=== PATIENT | female | born 1945 | race Caucasian/White ===

== ENCOUNTER 2017-12-14 05:50 | Day surgery (SDC) | payer MEDICARE, OTHER ==
[2017-12-14] MEDS ORDERED: DIPRIVAN 200 MG/20 ML IV ONE (05:51)
[2017-12-14] MEDS ORDERED: Ketamine HCl 50 MG/ML IJ ONE (05:51)
[2017-12-14] MEDS ORDERED: Lactated Ringers 1,000 ML IV SCH (06:00)
--- NOTE | 2017-12-14 10:36 | OP ---
SURGERY DATE/TIME: 12/14/2017 0727 PREOPERATIVE DIAGNOSIS: Screening exam. POSTOPERATIVE DIAGNOSIS: Sigmoid diverticulosis moderate to severe otherwise normal colon. PROCEDURE: Colonoscopy. SURGEON: Dr. Mckeon. ANESTHESIA: MAC. Medications given by anesthesia department. HISTORY: The patient is a 72 year-old white female presenting now for screening colonoscopy. The patient was appraised of the risks of the procedure including the risk of perforation, phlebitis, untoward reaction to medication, bleeding and missed lesions. The patient verbalized her understanding and desired to have the procedure performed. DESCRIPTION OF PROCEDURE: The patient was given the medications by the anesthesia department. She had continuous pulse oximetry, ECG monitoring, intermittent blood pressure monitoring and tidal CO2 monitoring during the examination. She was placed in the left lateral decubitus position. A digital rectal examination was performed and revealed normal anal sphincter tone and no masses. The flexible Olympus pediatric colonoscope was used to intubate the rectum. A view of the colon was developed sequentially to the cecum. Upon insertion and withdrawal was noted moderate to severe sigmoid diverticula but no other mucosal lesions were encountered. The scope was removed from the patient who tolerated the procedure well and was sent back to OP recovery in good condition. The prep was noted to be fair to good.
[2017-12-14 10:46] VITALS: O2SAT 98
[2017-12-14 11:32] VITALS: BP 127/72; PULSE 64
== END 2017-12-14 09:10 | disposition home or self-care (01) ==
LOC: SDC 05:50
PROVIDERS: ATTEND Family Medicine
PROC: 0DJD8ZZ Inspection of Lower Intestinal Tract, Via Natural or Artificial Opening Endoscopic (ICD-10-PCS; principal; 2017-12-14)
DX: Z12.11 Encounter for screening for malignant neoplasm of colon (principal); K57.30 Diverticulosis of large intestine without perforation or abscess without bleeding
CPT/HCPCS: 99100; J2704

== ENCOUNTER 2019-12-13 09:14 | Emergency (ER) | payer MEDICARE, OTHER ==
--- NOTE | 2019-12-13 09:45 | ERPHSYRPT ---
- History of Present Illness Time Seen by Provider: 12/13/19 09:28 Source: patient Exam Limitations: no limitations Physician History: Patient is a 74-year-old female with a past medical history significant for a prior stroke for which she is currently on Xarelto, hypertension, hyperlipidemia who presents with a chief complaint of a cough and sinus congestion. Onset reportedly was this past Thursday. She endorsed having a dry cough in addition to a subjective fever, sore throat, sinus congestion, headache in addition to one episode of posttussis vomiting. Of note, her tried to schedule an appointment with her primary care provider, Dr. Mckeon, and was told to come to the emergency department for further evaluation because they were concerned the patient may be at risk for dehydration. The patient has not had no additional episodes of vomiting, diarrhea, chest pain , shortness of breath or abdominal pain. Take anything for her symptoms this morning. She has no known history of lung disease. She is he has no known COVID-19 exposures, travel to any known areas that are endemic with COVID at this time. Allergies/Adverse Reactions: latex Allergy (Intermediate, Verified 12/07/17 15:25) Home Medications: L. Acidophilus/Dig Enz Cmb 5 [Probiotic-Digestive Enzymes] 1 each PO DAILY 03/11 [History] Ascorbic Acid 500 mg [Vitamin C 500 MG] 500 mg PO DAILY 12/07/17 [History] Enzymes,Digestive [Digestive Enzymes] 1 each PO DAILY 12/07/17 [History] Metoprolol Succinate 25 mg Xl* [Toprol-Xl 25MG Tablets] 25 mg PO DAILY [History] Rivaroxaban [Xarelto] 20 mg PO DAILY 12/07/17 [History] Ubidecarenone [Co Q-10] 200 mg PO DAILY 12/07/17 [History] Hx Tetanus, Diphtheria Vaccination/Date Given: No Hx Influenza Vaccination/Date Given: No Hx Pneumococcal Vaccination/Date Given: No - Review of Systems Constitutional: Fever, Chills Eyes: Eye Pain Ears, Nose, & Throat: Ear Pain, Nose Congestion, Throat Pain, Painful Swallowing Respiratory: Cough, No Dyspnea, No Dyspnea on Exertion (HOUGH), No Stridor, No Wheezing Cardiac: No Chest Pain Abdominal/Gastrointestinal: No Abdominal Pain, No Nausea, No Vomiting Genitourinary Symptoms: No Symptoms Musculoskeletal: No Symptoms Skin: No Symptoms Neurological: No Symptoms Psychological: No Symptoms Endocrine: No Symptoms All Other Systems: Reviewed and Negative - Past Medical History Pertinent Past Medical History: Yes Neurological History: TIA ENT History: No Pertinent History Cardiac History: Arrhythmia, Hypertension, Other Respiratory History: No Pertinent History Endocrine Medical History: No Pertinent History Musculoskeletal History: No Pertinent History GI Medical History: No Pertinent History History: No Pertinent History Psycho-Social History: No Pertinent History Female Reproductive Disorders: No Pertinent History Other Medical History: afib,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 colonoscopy - Social History Smoking Status: Never smoker Exposure to second hand smoke: No Drug Use: none Patient Lives Alone: No - Nursing Vital Signs Nursing Vital Signs: Initial Vital Signs Temperature 99.1 F 12/13/19 09:22 Pulse Rate 85 12/13/19 09:22 Respiratory Rate 22 12/13/19 09:22 Blood Pressure 134/82 12/13/19 09:22 O2 Sat by Pulse Oximetry 96 12/13/19 09:22 Pain Scale Pain Intensity 0 - Physical Exam General Appearance: no apparent distress, alert Eye Exam: PERRL/EOMI, No photophobia, No EOM palsy/anisocoria Ears, Nose, Throat Exam: normal ENT inspection, TMs normal, moist mucous membranes, No pharynx normal, No TM abnormal (L), No pharyngeal erythema, No tonsillar exudate Neck Exam: non-tender, supple Respiratory Exam: normal breath sounds, lungs clear, airway intact, No chest tenderness, No respiratory distress, No diminished breath sounds, No accessory muscle use Cardiovascular Exam: regular rate/rhythm, normal heart sounds, capillary refill <2 sec, No murmur, No friction rub, No gallop, No tachycardia Gastrointestinal/Abdomen Exam: soft, No tenderness, No distention, No mass Pelvic Exam: not done Rectal Exam: No deferred Back Exam: normal inspection Extremity Exam: normal inspection Neurologic Exam: alert, oriented x 3, cooperative, normal mood/affect Skin Exam: normal color, warm, dry SpO2 Interpretation: normal O2 Delivery: Room Air - Course Nursing assessment & vital signs reviewed: Yes - Radiology Exams Chest X-ray Interpretation: Reviewed by me, Negative Ordered Tests: Active Orders 24 hr Category Date Time Status CHEST 2 VIEWS (PA AND LAT) Stat Exams 12/13/19 09:46 Completed Medication Summary Discontinued Medications Generic Name Dose Route Start Last Admin Trade Name Helga PRN Reason Stop Dose Admin Acetaminophen 975 mg 12/13/19 09:47 12/13/19 10:25 Tylenol 325 Mg PO 12/13/19 09:48 975 mg STAT ONE Administration Acetaminophen Confirm 12/13/19 10:23 Tylenol 325 Mg Administered 12/13/19 10:24 Dose 975 mg .ROUTE .STK-MED ONE Ondansetron HCl 4 mg 12/13/19 09:47 12/13/19 10:24 Zofran Odt 4 Mg PO 12/13/19 09:48 4 mg STAT ONE Administration Ondansetron HCl Confirm 12/13/19 10:23 Zofran Odt 4 Mg Administered 12/13/19 10:24 Dose 4 mg .ROUTE .STK-MED ONE Lab/Rad Data: Laboratory Results 12/13/19 Range/Units 10:08 Influenza Type A Ag POSITIVE (NEGATIVE) Influenza Type B Ag NEGATIVE (NEGATIVE) RSV (PCR) NEGATIVE (Negative) - Progress Progress: improved Progress Note: 12/13/19 10:45 Lab called informing that the patient has tested positive for influenza A. 12/13/19 21:15 Nontoxic in appearance. Afebrile and the patient appears to be well-hydrated. X-ray was ordered to eval for evidence of pneumonia and flu testing was positive for influenza A. There is no obvious pneumonia or pleural effusion on her chest x-ray. Overall, she appears to be well with no signs of meningismus. Ultimately, she was discharged home with a prescription for Tamiflu and instructed to take ondansetron as needed for any vomiting and to use Tylenol as well as ibuprofen as needed for any fevers or pain. ED return precautions for influenza was given, specifically signs and symptoms to monitor for a secondary pneumonia. Otherwise, she was instructed to follow-up with her primary care provider if needed. She agreed with and verbally understood the discharge plan and was comfortable with being discharged home. Discussed with : Jaret Counseled pt/family regarding: lab results, diagnosis, need for follow-up, rad results - Departure Departure Disposition: Home Clinical Impression: Influenza A Condition: Stable Critical Care Time: No Referrals: DIANNA MCKEON [Primary Care Provider] - Instructions: Flu, Adult (DC) Additional Instructions: Please take-/Tylenol and/or ibuprofen as needed for any fevers or generalized aches and pains. You can purchase these medications [id number]. Please take these medications as instructed on the medication bottle. Prescriptions: Ondansetron ODT 4 MG [Zofran Odt 4 mg] 4 mg PO Q6H PRN PRN #10 tab.rapdis PRN Reason: Vomiting Benzonatate [Tessalon Perle] 100 mg PO [id number] PRN #30 capsule PRN Reason: Cough Oseltamivir 75 mg [Tamiflu 75MG Capsule] 75 mg PO BID #10 cap
[2019-12-13] MEDS ORDERED: TYLENOL 325 MG PO ONE (09:47)
[2019-12-13] MEDS ORDERED: ZOFRAN ODT 4 MG PO ONE (09:47)
[2019-12-13] MEDS ORDERED: ZOFRAN ODT 4 MG ONE (10:23)
[2019-12-13] MEDS ORDERED: TYLENOL 325 MG ONE (10:23)
--- NOTE | 2019-12-13 10:37 | XRAY ---
Indication: Fever, cough, and headache. Comparison: None PA/lateral chest demonstrates normal heart and lungs. Bony thorax intact with minimal degenerative changes. Incidental anterior chest electronic device.
[2019-12-13 10:38] LABS: INFLUENZA B NEGATIVE (NEGATIVE); RESPIRATORY SYNCTIAL VIRUS NEGATIVE (Negative)
[2019-12-13 10:44] LABS: INFLUENZA A POSITIVE (NEGATIVE)
[2019-12-13 10:52] VITALS: BP 130/80; PULSE 88; O2SAT 98
== END 2019-12-13 11:03 | disposition home or self-care (01) ==
LOC: ED 09:14
DX: J09.X2 Influenza due to identified novel influenza A virus with other respiratory manifestations (principal)
CPT/HCPCS: 71046; 87631; 99284; Q0162; A9270-GY

== ENCOUNTER 2023-11-13 01:10 | Observation (INO) | payer MEDICARE ==
--- NOTE | 2023-11-13 01:24 | ERPHSYRPT ---
- History of Present Illness Time Seen by Provider: 11/13/23 01:14 Historian: patient, family Exam Limitations: no limitations Physician History: 78 years old female with history of atrial fibrillation on Xarelto presented to the ER with chief complaint of right-sided chest pain sudden onset waking her up from sleep almost an hour prior to arrival. Patient reports dull aching to sharp pain 7/10 intensity earlier, took 3 nitros 5 minutes apart and pain is better and currently rates 3/10 intensity. Patient denies any palpitations or difficulty breathing. No cough fever or chills reported. Denies any known sick contact. No history of coronary artery disease or recent cardiac workup done. Prior Chest Pain/Cardiac Workup: no prior chest pain Nitro Today/Relief: 0.4 mg x 3 Aspirin Treatment Today: no aspirin today Allergies/Adverse Reactions: latex Allergy (Intermediate, Verified 11/13/23 01:47) Rash Home Medications: Metoprolol Succinate 25 mg Xl* [Toprol-Xl 25MG Tablets] 25 mg PO LUNCH 12/07/17 [History] Rivaroxaban [Xarelto] 20 mg PO HS 12/07/17 [History] Atorvastatin Calcium 20 mg PO HS 11/13/23 [History] Simethicone [Gas-X Ultra Strength] 180 mg PO BID 11/13/23 [History] Vit B6/Me-Thfolate/Me-B12/Ala [Podiapn Capsule] 1 cap PO BID 11/13/23 [History] Vit C/E/Zinc Ox/Fabian/Lut/Zeax [Icaps Areds2 Softgel] 1 cap PO DAILY 11/13/23 [History] Hx Tetanus, Diphtheria Vaccination/Date Given: No Hx Influenza Vaccination/Date Given: No Hx Pneumococcal Vaccination/Date Given: No - Review of Systems Constitutional: No Symptoms Eyes: No Symptoms Ears, Nose, & Throat: No Symptoms Respiratory: No Symptoms Cardiac: Chest Pain Abdominal/Gastrointestinal: No Symptoms Genitourinary Symptoms: No Symptoms Musculoskeletal: No Symptoms Skin: No Symptoms Neurological: No Symptoms Psychological: No Symptoms Endocrine: No Symptoms Hematologic/Lymphatic: Easy Bleeding Immunological/Allergic: No Symptoms - Past Medical History Pertinent Past Medical History: Yes Neurological History: TIA ENT History: No Pertinent History Cardiac History: Arrhythmia, Hypertension, Other Respiratory History: No Pertinent History Endocrine Medical History: No Pertinent History Musculoskeletal History: No Pertinent History GI Medical History: No Pertinent History History: No Pertinent History Psycho-Social History: No Pertinent History Female Reproductive Disorders: No Pertinent History 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 - Social History Smoking Status: Never smoker Exposure to second hand smoke: No Drug Use: none Patient Lives Alone: No - Nursing Vital Signs Nursing Vital Signs: Initial Vital Signs Temperature 97.3 F 11/13/23 01:11 Pulse Rate 69 11/13/23 01:11 Respiratory Rate 16 11/13/23 01:11 Blood Pressure 111/69 11/13/23 01:11 O2 Sat by Pulse Oximetry 96 11/13/23 01:11 Pain Scale Pain Intensity 0 - Physical Exam General Appearance: no apparent distress, alert Eye Exam: PERRL/EOMI Ears, Nose, Throat Exam: normal ENT inspection Neck Exam: normal inspection, non-tender, supple, full range of motion Respiratory Exam: normal breath sounds, lungs clear Cardiovascular Exam: normal heart sounds, irregular Gastrointestinal/Abdomen Exam: soft, normal bowel sounds, No tenderness Back Exam: normal inspection, normal range of motion Extremity Exam: normal inspection, normal range of motion Neurologic Exam: alert, oriented x 3, cooperative Skin Exam: normal color SpO2 Interpretation: normal SpO2: 95 O2 Delivery: Room Air - Course EKG Interpreted by Me: RATE (69), A-fib, NORMAL AXIS, NORMAL INTERVALS, Non- specific ST Changes Ordered Tests: Medication Summary Discontinued Medications Generic Name Dose Route Start Last Admin Trade Name Freq PRN Reason Stop Dose Admin Folic Acid 1 tab 11/13/23 22:00 Folic Acid/Vitamin B Comp W-C 1 Tab Tab PO 12/13/23 21:59 BID BINU Hydrogen Peroxide 0 ml 11/13/23 15:00 11/13/23 16:23 Hydrogen Peroxide 3% 236 Ml Solution TOP 12/13/23 14:59 236 ml UD BINU Administration Sodium Chloride 1,000 mls @ 125 mls/hr 11/13/23 03:00 11/13/23 12:14 Sodium Chloride 0.9% 1000 Ml IV 12/13/23 02:59 125 mls/hr .Q8H BINU Administration Metoprolol Succinate 25 mg 11/14/23 12:00 Metoprolol Succinate 25 Mg Xl Tab PO 12/14/23 11:59 LUNCH [facility] Multivitamins/Minerals 1 tab 11/14/23 10:00 Beta-Carotene(A) W-C And E/Min 1 Tab Tablet PO 12/14/23 09:59 DAILY [facility] Neomycin/Polymyxin/Bacitracin 0 gm 11/14/23 10:00 11/13/23 16:23 Neomy Sulf/Bacitra/Polymyxin B 30 Gm Tube TP 12/14/23 09:59 30 gm DAILY BINU Administration Rivaroxaban 20 mg 11/13/23 22:00 Rivaroxaban 10 Mg Tablet PO 12/13/23 21:59 HS [facility] Simethicone 160 mg 11/13/23 22:00 Simethicone 80 Mg Tab.Chew PO 12/13/23 21:59 BID [facility] Simvastatin 20 mg 11/13/23 22:00 Simvastatin 20 Mg Tablet PO 12/13/23 21:59 HS [facility] Lab/Rad Data: Laboratory Result Diagrams 11/13/23 01:20 11/13/23 01:20 Laboratory Results 11/13/23 11/13/23 11/13/23 Range/Units 08:42 05:34 01:20 WBC (4.0-10.5) x10^3/uL RBC (4.1-5.4) x10^6/uL Hgb (12.0-16.0) g/dL Hct (35-47) % MCV (78-100) fL MCH (26-32) pg MCHC (32-36) g/dL RDW (11.5-14.0) % Plt Count (150-450) x10^3/uL MPV (7.5-11.0) fL Gran % (36.0-66.0) % Immature Gran % (Auto) (0.00-0.4) % Nucleat RBC Rel Count (0.00-0.1) % Eos # (Auto) (0-0.5) x10^3/uL Immature Gran # (Auto) (0.00-0.03) x10^3u/L Absolute Lymphs (auto) (1.0-4.6) x10^3/uL Absolute Monos (auto) (0.0-1.3) x10^3/uL Absolute Nucleated RBC (0.00-0.01) x10^3u/L Lymphocytes % (24.0-44.0) % Monocytes % (0.0-12.0) % Eosinophils % (0.00-5.0) % Basophils % (0.0-0.4) % Absolute Granulocytes (1.4-6.9) x10^3/uL Basophils # (0-0.4) x10^3/uL Sodium (137-145) mmol/L Potassium (3.5-5.1) mmol/L Chloride (98-107) mmol/L Carbon Dioxide (22-30) mmol/L Anion Gap (5-15) MEQ/L BUN (7-17) mg/dL Creatinine (0.52-1.04) mg/dL Estimated GFR ML/MIN Glucose (74-106) mg/dL Calcium (8.4-10.2) mg/dL Total Bilirubin (0.2-1.3) mg/dL AST (14-36) U/L ALT (0-35) U/L Alkaline Phosphatase (38-126) U/L Creatine Kinase (30-135) U/L Troponin I < 0.012 (0.000-0.034) ng/mL NT-Pro-B Natriuret Pep 26.6 (<300) pg/mL Serum Total Protein (6.3-8.2) g/dL Albumin (3.5-5.0) g/dL Influenza Type A Ag NEGATIVE (NEGATIVE) Influenza Type B Ag NEGATIVE (NEGATIVE) RSV (PCR) NEGATIVE (NEGATIVE) SARS-CoV-2 (PCR) NEGATIVE (NEGATIVE) 11/13/23 11/13/23 11/13/23 Range/Units 01:20 01:20 01:20 WBC 7.7 (4.0-10.5) x10^3/uL RBC 4.14 (4.1-5.4) x10^6/uL Hgb 12.2 (12.0-16.0) g/dL Hct 37.5 (35-47) % MCV 90.6 (78-100) fL MCH 29.5 (26-32) pg MCHC 32.5 (32-36) g/dL RDW 14.1 H (11.5-14.0) % Plt Count 318 (150-450) x10^3/uL MPV 11.4 H (7.5-11.0) fL Gran % 54.0 (36.0-66.0) % Immature Gran % (Auto) 0.1 (0.00-0.4) % Nucleat RBC Rel Count 0.0 (0.00-0.1) % Eos # (Auto) 0.33 (0-0.5) x10^3/uL Immature Gran # (Auto) 0.01 (0.00-0.03) x10^3u/L Absolute Lymphs (auto) 2.51 (1.0-4.6) x10^3/uL Absolute Monos (auto) 0.63 (0.0-1.3) x10^3/uL Absolute Nucleated RBC 0.00 (0.00-0.01) x10^3u/L Lymphocytes % 32.7 (24.0-44.0) % Monocytes % 8.2 (0.0-12.0) % Eosinophils % 4.3 (0.00-5.0) % Basophils % 0.7 (0.0-0.4) % Absolute Granulocytes 4.15 (1.4-6.9) x10^3/uL Basophils # 0.05 (0-0.4) x10^3/uL Sodium 138 (137-145) mmol/L Potassium 4.0 (3.5-5.1) mmol/L Chloride 107 (98-107) mmol/L Carbon Dioxide 25 (22-30) mmol/L Anion Gap 10.4 (5-15) MEQ/L BUN 16 (7-17) mg/dL Creatinine 0.90 (0.52-1.04) mg/dL Estimated GFR 66.3 ML/MIN Glucose 108 H (74-106) mg/dL Calcium 9.6 (8.4-10.2) mg/dL Total Bilirubin 0.50 (0.2-1.3) mg/dL AST 32 (14-36) U/L ALT 23 (0-35) U/L Alkaline Phosphatase 72 (38-126) U/L Creatine Kinase 73 (30-135) U/L Troponin I < 0.012 (0.000-0.034) ng/mL NT-Pro-B Natriuret Pep (<300) pg/mL Serum Total Protein 7.2 (6.3-8.2) g/dL Albumin 4.4 (3.5-5.0) g/dL Influenza Type A Ag (NEGATIVE) Influenza Type B Ag (NEGATIVE) RSV (PCR) (NEGATIVE) SARS-CoV-2 (PCR) (NEGATIVE) - Progress Progress: improved, re-examined Air Movement: good Progress Note: 11/13/23 03:07 78 years old is evaluated for sudden onset chest pain. EKG is A-fib rate controlled with no acute ST elevation and negative troponin. Patient has taken 3 nitros prior to arrival and currently have minimal discomfort, does not want any pain medications. Chest x-ray negative for any acute cardiopulmonary findings reviewed by me, official report is pending. Chemistries fairly unremarkable. Normal white count. Discussed with Dr. Almendarez, reviewed history, workup and he recommended obtaining CTA chest before patient can be admitted. 11/13/23 05:30 Patient chest pain is better on reevaluation. Obtained CTA chest which is negative for pulmonary embolism. No definitive consolidation/pneumonia. Patient is on room air with saturation around 96%. CTA also showed mild cardiomegaly with mild decreased perfusion in the apical area. Patient does not have any cardiac workup done in the recent past. Discussed with Dr. Almendarez again and patient is being admitted. 11/13/23 05:31 Blood Culture(s) Obtained: No Antibiotics given: No Discussed with Dr.: Veras Medical Desision Making - Discussion of managment Care discussed with:: hospitalist Reviewed:: Test results Agreed on:: Treatment plan Will see patient: in hospital - Diagnostic Testing Diagnostic test were ordered, analyzed, and reviewed by me: Yes Radiological Interpretation: Interpreted by me, Reviewed by me, Teleradiologist Report - Risk of complications The pt has a high risk of morbidity or mortality based on: Decision regarding hospitilization or escalation of hosp level of care - Departure Departure Disposition: Observation Clinical Impression: Chest pain, rule out acute myocardial infarction Condition: Stable Critical Care Time: No
[2023-11-13 01:50] LABS: Absolute Neutrophil Ct (ANC) 4.15 x10^3/uL (1.4-6.9); BASOPHIL % 0.7 % (0.0-0.4); Basophil (Absolute #) 0.05 x10^3/uL (0-0.4); Eosinophil % 4.3 % (0.00-5.0); Eosinophil (Absolute #) 0.33 x10^3/uL (0-0.5); Hematocrit 37.5 % (35-47); Hemoglobin 12.2 g/dL (12.0-16.0); IMMATURE GRAN # 0.01 x10^3u/L (0.00-0.03); IMMATURE GRAN % 0.1 % (0.00-0.4); Lymphocyte (Absolute #) 2.51 x10^3/uL (1.0-4.6); Lymphocytes % 32.7 % (24.0-44.0); Mean Cell Volume 90.6 fL (78-100); Mean Corpuscular Hemoglobin 29.5 pg (26-32); Mean Corpuscular Hgb Concent. 32.5 g/dL (32-36); Mean Platelet Volume 11.4 fL (7.5-11.0); Monocyte (Absolute #) 0.63 x10^3/uL (0.0-1.3); Monocytes % 8.2 % (0.0-12.0); Platelet Count 318 x10^3/uL (150-450); Red Blood Count 4.14 x10^6/uL (4.1-5.4); Red Cell Distribution Width 14.1 % (11.5-14.0); White Blood Count 7.7 x10^3/uL (4.0-10.5)
[2023-11-13 02:06] LABS: ALBUMIN 4.4 g/dL (3.5-5.0); ANION GAP 10.4 MEQ/L (5-15); BILIRUBIN,TOTAL 0.5 mg/dL (0.2-1.3); Calcium 9.6 mg/dL (8.4-10.2); Creatinine 1 0.9 mg/dL (0.52-1.04); EST GLOMERULAR FILTRATION RATE 66.3 ML/MIN; Total Protein 7.2 g/dL (6.3-8.2)
[2023-11-13] MEDS: Sodium Chloride 0.9% 1000 ML 1,000 ML IV SCH (03:39)
--- NOTE | 2023-11-13 05:19 | XRAY ---
CLINICAL HISTORY: right side chest pain TECHNIQUE: Axial CT images of the chest were acquired with administration of intravenous contrast follwing PE protocol. Coronal and sagittal reconstructions were obtained. COMPARISON: None. FINDINGS: Multiple bilateral basal, right middle lobar and left lingular atelectatic bands are noted. Bilateral basal dependent ground glass opacities mostly gravitational rather than inflammatory in nature. A right pleural-based/subpleural calcified nodule is seen (4mm in size). Otherwise, no consolidative opacities, nodules or masses are noted in both lung parenchyma. Few scattered atherosclerotic calcifications of the aorta and mild mural thickening is noted, no dissections are evident. No filling defects are noted in the main pulmonary branches. No definite evidence of acute pulmonary embolism in the pulmonary arteries and its branches. Mild cardiac enlargment, mild decreased perfusion is seen in the apical myometrial wall with mild thinning. No suspiciously enlarged mediastinal lymph nodes, no mediational masses or collections. Few calcified left hilar lymph nodes are noted. No pleural effusions Patent tracheobronchial tree. No gross lytic or sclerotic lesions in the visualized spine. There is no definite mass lesion in the chest wall. Lower neck cuts reveal bilobar thyroid nodules. IMPRESSION: 1. Multiple bilateral pulmonary atelectatic bands. 2. Bilateral basal dependent ground glass opacities mostly gravitational rather than inflammatory in nature. 3. Right pleural-based/subpleural calcified nodule is seen (4mm in size). 4. Few calcified left hilar lymph nodes are noted. 5. Mild cardiac enlargment, possible mild decreased perfusion in the apical myometrial wall, for clinical correlation. No definite evidence of acute pulmonary embolism. Electronically Signed by: Ashvin Hernandez MD. (11/13/2023 03:42:29 EIGHT ARM OPERATOR)
--- NOTE | 2023-11-13 09:15 | XRAY ---
Indication: Chest pain. Comparison: December 13, 2019 Portable chest now demonstrates minimal left base infiltrate/atelectasis. Remaining heart and lungs unremarkable. Bony thorax intact again with osteopenia and minimal degenerative changes.
[2023-11-13 09:22] LABS: INFLUENZA A NEGATIVE (NEGATIVE); INFLUENZA B NEGATIVE (NEGATIVE); RESPIRATORY SYNCTIAL VIRUS NEGATIVE (NEGATIVE); SARS-CoV-2 Xpert Express NEGATIVE (NEGATIVE)
--- NOTE | 2023-11-13 15:01 | PCM.DS ---
Discharge Summary Date of Admission: 11/13/23 08:43 Date of Discharge: 11/13/23 Admitting Physician: CHAUNCEY CHARLTON MD Primary Care Provider: DIANNA VALERO Allergies Allergies latex Allergy (Intermediate, Verified 11/13/23 01:47) Rash Hospital Summary - Hospital Course Hospital Course: 78 years old female with history of atrial fibrillation on Xarelto presented to the ER with chief complaint of right-sided chest pain sudden onset waking her up from sleep almost an hour prior to arrival. Patient reports dull aching to sharp pain 7/10 intensity earlier, took 3 nitros 5 minutes apart and pain improved. In ER rated 3/10 intensity. Patient denies any palpitations or difficulty breathing. No cough fever or chills reported. Denies any known sick contact. No history of coronary artery disease or recent cardiac workup done. Trop x3 negative. No current CP or related sxs. Echo shows EF 64% with tricuspid regurgitation and mitral regurgitation. CXR and CTA negative. Pt has an OP stress test already scheduled. Cardiology OP appointment made for f/u. She denies SOB, abd. pain, N/V/D. - Vitals & Intake/Output Vital Signs: Vital Signs Temperature 97.3 F 11/13/23 11:56 Pulse Rate 79 11/13/23 11:56 Respiratory Rate 18 11/13/23 11:56 Blood Pressure 121/69 11/13/23 11:56 O2 Sat by Pulse Oximetry 93 L 11/13/23 11:56 Intake & Output: Intake & Output 11/11/23 11/12/23 11/13/23 11/14/23 11:59 11:59 11:59 11:59 Intake Total 240 240 Balance 240 240 Weight 80 kg - Lab Result Diagrams: 11/13/23 01:20 11/13/23 01:20 Lab Results-Last 24 Hrs: Lab Results-Last 24 Hours 11/13/23 11/13/23 11/13/23 Range/Units 01:20 01:20 01:20 WBC 7.7 (4.0-10.5) x10^3/uL RBC 4.14 (4.1-5.4) x10^6/uL Hgb 12.2 (12.0-16.0) g/dL Hct 37.5 (35-47) % MCV 90.6 (78-100) fL MCH 29.5 (26-32) pg MCHC 32.5 (32-36) g/dL RDW 14.1 H (11.5-14.0) % Plt Count 318 (150-450) x10^3/uL MPV 11.4 H (7.5-11.0) fL Gran % 54.0 (36.0-66.0) % Immature Gran % (Auto) 0.1 (0.00-0.4) % Nucleat RBC Rel Count 0.0 (0.00-0.1) % Eos # (Auto) 0.33 (0-0.5) x10^3/uL Immature Gran # (Auto) 0.01 (0.00-0.03) x10^3u/L Absolute Lymphs (auto) 2.51 (1.0-4.6) x10^3/uL Absolute Monos (auto) 0.63 (0.0-1.3) x10^3/uL Absolute Nucleated RBC 0.00 (0.00-0.01) x10^3u/L Lymphocytes % 32.7 (24.0-44.0) % Monocytes % 8.2 (0.0-12.0) % Eosinophils % 4.3 (0.00-5.0) % Basophils % 0.7 (0.0-0.4) % Absolute Granulocytes 4.15 (1.4-6.9) x10^3/uL Basophils # 0.05 (0-0.4) x10^3/uL Sodium 138 (137-145) mmol/L Potassium 4.0 (3.5-5.1) mmol/L Chloride 107 (98-107) mmol/L Carbon Dioxide 25 (22-30) mmol/L Anion Gap 10.4 (5-15) MEQ/L BUN 16 (7-17) mg/dL Creatinine 0.90 (0.52-1.04) mg/dL Estimated GFR 66.3 ML/MIN Glucose 108 H (74-106) mg/dL Calcium 9.6 (8.4-10.2) mg/dL Total Bilirubin 0.50 (0.2-1.3) mg/dL AST 32 (14-36) U/L ALT 23 (0-35) U/L Alkaline Phosphatase 72 (38-126) U/L Creatine Kinase 73 (30-135) U/L Troponin I < 0.012 (0.000-0.034) ng/mL NT-Pro-B Natriuret Pep (<300) pg/mL Serum Total Protein 7.2 (6.3-8.2) g/dL Albumin 4.4 (3.5-5.0) g/dL Influenza Type A Ag (NEGATIVE) Influenza Type B Ag (NEGATIVE) RSV (PCR) (NEGATIVE) SARS-CoV-2 (PCR) (NEGATIVE) 11/13/23 11/13/23 11/13/23 Range/Units 01:20 05:34 08:42 WBC (4.0-10.5) x10^3/uL RBC (4.1-5.4) x10^6/uL Hgb (12.0-16.0) g/dL Hct (35-47) % MCV (78-100) fL MCH (26-32) pg MCHC (32-36) g/dL RDW (11.5-14.0) % Plt Count (150-450) x10^3/uL MPV (7.5-11.0) fL Gran % (36.0-66.0) % Immature Gran % (Auto) (0.00-0.4) % Nucleat RBC Rel Count (0.00-0.1) % Eos # (Auto) (0-0.5) x10^3/uL Immature Gran # (Auto) (0.00-0.03) x10^3u/L Absolute Lymphs (auto) (1.0-4.6) x10^3/uL Absolute Monos (auto) (0.0-1.3) x10^3/uL Absolute Nucleated RBC (0.00-0.01) x10^3u/L Lymphocytes % (24.0-44.0) % Monocytes % (0.0-12.0) % Eosinophils % (0.00-5.0) % Basophils % (0.0-0.4) % Absolute Granulocytes (1.4-6.9) x10^3/uL Basophils # (0-0.4) x10^3/uL Sodium (137-145) mmol/L Potassium (3.5-5.1) mmol/L Chloride (98-107) mmol/L Carbon Dioxide (22-30) mmol/L Anion Gap (5-15) MEQ/L BUN (7-17) mg/dL Creatinine (0.52-1.04) mg/dL Estimated GFR ML/MIN Glucose (74-106) mg/dL Calcium (8.4-10.2) mg/dL Total Bilirubin (0.2-1.3) mg/dL AST (14-36) U/L ALT (0-35) U/L Alkaline Phosphatase (38-126) U/L Creatine Kinase (30-135) U/L Troponin I < 0.012 (0.000-0.034) ng/mL NT-Pro-B Natriuret Pep 26.6 (<300) pg/mL Serum Total Protein (6.3-8.2) g/dL Albumin (3.5-5.0) g/dL Influenza Type A Ag NEGATIVE (NEGATIVE) Influenza Type B Ag NEGATIVE (NEGATIVE) RSV (PCR) NEGATIVE (NEGATIVE) SARS-CoV-2 (PCR) NEGATIVE (NEGATIVE) 11/13/23 Range/Units 09:13 WBC (4.0-10.5) x10^3/uL RBC (4.1-5.4) x10^6/uL Hgb (12.0-16.0) g/dL Hct (35-47) % MCV (78-100) fL MCH (26-32) pg MCHC (32-36) g/dL RDW (11.5-14.0) % Plt Count (150-450) x10^3/uL MPV (7.5-11.0) fL Gran % (36.0-66.0) % Immature Gran % (Auto) (0.00-0.4) % Nucleat RBC Rel Count (0.00-0.1) % Eos # (Auto) (0-0.5) x10^3/uL Immature Gran # (Auto) (0.00-0.03) x10^3u/L Absolute Lymphs (auto) (1.0-4.6) x10^3/uL Absolute Monos (auto) (0.0-1.3) x10^3/uL Absolute Nucleated RBC (0.00-0.01) x10^3u/L Lymphocytes % (24.0-44.0) % Monocytes % (0.0-12.0) % Eosinophils % (0.00-5.0) % Basophils % (0.0-0.4) % Absolute Granulocytes (1.4-6.9) x10^3/uL Basophils # (0-0.4) x10^3/uL Sodium (137-145) mmol/L Potassium (3.5-5.1) mmol/L Chloride (98-107) mmol/L Carbon Dioxide (22-30) mmol/L Anion Gap (5-15) MEQ/L BUN (7-17) mg/dL Creatinine (0.52-1.04) mg/dL Estimated GFR ML/MIN Glucose (74-106) mg/dL Calcium (8.4-10.2) mg/dL Total Bilirubin (0.2-1.3) mg/dL AST (14-36) U/L ALT (0-35) U/L Alkaline Phosphatase (38-126) U/L Creatine Kinase (30-135) U/L Troponin I < 0.012 (0.000-0.034) ng/mL NT-Pro-B Natriuret Pep (<300) pg/mL Serum Total Protein (6.3-8.2) g/dL Albumin (3.5-5.0) g/dL Influenza Type A Ag (NEGATIVE) Influenza Type B Ag (NEGATIVE) RSV (PCR) (NEGATIVE) SARS-CoV-2 (PCR) (NEGATIVE) - Radiology Exams Ordered Rad Exams-Entire Visit: Radiology Procedures Category Date Time Status CHEST 1 VIEW (PORTABLE) Stat Exams 11/13/23 01:35 Completed CHEST WITH CONTRAST [CT] Stat Exams 11/13/23 03:32 Completed ECHO W/2D AND DOPPLER [US] Routine Exams 11/13/23 08:49 Taken Discharge Exam General Appearance: no apparent distress, alert Neurologic Exam: alert, oriented x 3, cooperative, normal mood/affect, nml cerebellar function, sensation nml, No motor deficits Eye Exam: PERRL, EOMI, eyes nml inspection Ears, Nose, Throat Exam: normal ENT inspection, pharynx normal, moist mucous membranes Neck Exam: normal inspection, non-tender, supple, full range of motion Respiratory Exam: normal breath sounds, lungs clear, No respiratory distress Cardiovascular Exam: regular rate/rhythm, normal heart sounds Gastrointestinal/Abdomen Exam: soft, No tenderness, No mass Pelvic Exam: deferred Rectal Exam: deferred Back Exam: normal inspection, normal range of motion, No CVA tenderness, No vertebral tenderness Extremity Exam: normal inspection, normal range of motion Skin Exam: normal color, warm, dry Final Diagnosis/Problem List - Final Discharge Diagnosis/Problem (1) Chest pain, rule out acute myocardial infarction Current Visit: Yes Status: Acute Assessment & Plan: - tele - CXR and CTA reviewed - heart healthy diet - Trop x3 negative - Echo EF 64% with TR and MR - no further CP since this AM - F/u for OP stress test Code(s): R07.9 - CHEST PAIN, UNSPECIFIED (2) HTN (hypertension) Current Visit: Yes Status: Acute Assessment & Plan: - stable continue home meds Code(s): I10 - ESSENTIAL (PRIMARY) HYPERTENSION (3) Dizziness Current Visit: No Status: Resolved Assessment & Plan: - resolved Code(s): R42 - DIZZINESS AND GIDDINESS (4) Wound of skin Current Visit: Yes Status: Acute Assessment & Plan: - from recent procedure with dermatology - apply mixture of 1/2 and 1/2 NS and hydrogen peroxide per dermatology order then place neosporin on chest wound Code(s): T14.8XXA - OTHER INJURY OF UNSPECIFIED BODY REGION, INITIAL ENCOUNTER - Discharge Discharge Date: 11/13/23 Disposition: Home, Self-Care Condition: Stable Prescriptions: Continue Metoprolol Succinate 25 mg Xl* [Toprol-Xl 25MG Tablets] 25 mg PO LUNCH Rivaroxaban [Xarelto] 20 mg PO HS Vit B6/Me-Thfolate/Me-B12/Ala [Podiapn Capsule] 1 cap PO BID Atorvastatin Calcium 20 mg PO HS Simethicone [Gas-X Ultra Strength] 180 mg PO BID Vit C/E/Zinc Ox/Fabian/Lut/Zeax [Icaps Areds2 Softgel] 1 cap PO DAILY Follow up with: DIANNA VALERO [Primary Care Provider] - 11/23/23 10:00 am
--- NOTE | 2023-11-13 15:08 | PCM.HP ---
History of Present Illness - Chief Complaint Chief Complaint: chest pain Date: 11/13/23 History of Present Illness: is a 78 years old female with history of atrial fibrillation on Xarelto presented to the ER with chief complaint of right-sided chest pain sung den onset waking her up from sleep almost an hour prior to arrival. Patient reports dull aching to sharp pain 7/10 intensity earlier, took 3 nitros 5 minutes apart and pain improved. In ER rated 3/10 intensity. Patient denies any palpitations or difficulty breathing. No cough fever or chills reported. Denies any known sick contact. No history of coronary artery disease or recent cardiac workup done. Trop x3 negative. No current CP or related sxs. Echo shows EF 64% with tricuspid regurgitation and mitral regurgitation. CXR and CTA negative. Pt has an OP stress test already scheduled. Cardiology OP appointment made for f/u. She denies SOB, abd. pain, N/V/D. - Review of Systems Constitutional: No Fever, No Chills Eyes: No Symptoms Ears, Nose, & Throat: No Symptoms Respiratory: No Cough, No Short Of Breath Cardiac: Chest Pain, No Edema, No Syncope Abdominal/Gastrointestinal: No Abdominal Pain, No Nausea, No Vomiting, No Diarrhea Genitourinary Symptoms: No Dysuria Musculoskeletal: No Back Pain, No Neck Pain Skin: Skin Lesions (right chest), No Rash Neurological: No Dizziness, No Focal Weakness, No Sensory Changes Psychological: No Symptoms Endocrine: No Symptoms Hematologic/Lymphatic: No Symptoms Immunological/Allergic: No Symptoms Medications & Allergies Home Medications: Home Medication List Metoprolol Succinate 25 mg Xl* [Toprol-Xl 25MG Tablets] 25 mg PO LUNCH 0 12/07/17 [History Confirmed 11/13/23] Rivaroxaban [Xarelto] 20 mg PO HS 12/07/17 [History Confirmed 11/13/23] Atorvastatin Calcium 20 mg PO HS 11/13/23 [History Confirmed 11/13/23] Simethicone [Gas-X Ultra Strength] 180 mg PO BID 11/13/23 [History Confirmed 11/13/23] Vit B6/Me-Thfolate/Me-B12/Ala [Podiapn Capsule] 1 cap PO BID 11/13/23 [History Confirmed 11/13/23] Vit C/E/Zinc Ox/Fabian/Lut/Zeax [Icaps Areds2 Softgel] 1 cap PO DAILY 11/13/23 [History Confirmed 11/13/23] Allergies/Adverse Reactions: Allergies Allergy/AdvReac Type Severity Reaction Status Date / Time latex Allergy Intermediate Rash Verified 11/13/23 01:47 - Past Medical History Past Medical History: Yes Neurological History: TIA ENT History: No Pertinent History Cardiac History: Arrhythmia, Hypertension, Other Respiratory History: No Pertinent History Endocrine Medical History: No Pertinent History Musculoskelatal History: No Pertinent History GI Medical History: No Pertinent History History: No Pertinent History Pyscho-Social History: No Pertinent History Reproductive Disorders: No Pertinent History Comment: afib,implanted electronic device monitor ,freq uti,bruises easily, - Past Surgical History Past Surgical History: Yes Neuro Surgical History: No Pertinent History Cardiac History: No Pertinent History Respiratory Surgery: No Pertinent History GI Surgical History: No Pertinent History Genitourinary Surgical Hx: No Pertinent History Musculskeletal Surgical Hx: No Pertinent History Female Surgical History: No Pertinent History Other Surgical History: implanted electronic device monitor. colonoscopy - Social History Smoking Status: Never smoker Exposure to second hand smoke: No Alcohol: Occasionally Drug Use: none - Social Determinants of Health Will the patient participate in the screening: Yes Do you worry about a steady place to live?: No Do you have any problems with any of the following?: No known problems In the past 12 months,have you had to go without utilities?: No Have you or anyone in your house had to go without enough: No Transportation Issues: No Has anyone in your support network made you feel unsafe?: No Does the patient want assistance with any of the above?: No - Physical Exam Vital Signs: Vital Signs - 24 hr Temp Pulse Pulse Resp BP BP Pulse Ox 11/13/23 11:56 97.3 F 79 18 121/69 93 L 11/13/23 08:50 96.6 F 56 L 16 146/59 99 11/13/23 08:30 81 15 124/70 95 11/13/23 08:00 84 12 113/87 95 11/13/23 07:30 76 18 117/72 95 11/13/23 07:00 71 22 112/74 95 11/13/23 06:30 72 16 128/75 94 L 11/13/23 06:00 65 109/76 96 11/13/23 05:32 95 11/13/23 05:30 69 15 120/69 95 11/13/23 05:00 73 17 104/66 95 11/13/23 04:30 72 13 109/67 92 L 11/13/23 04:00 65 20 95 11/13/23 03:40 65 22 96 11/13/23 03:39 68 16 97 11/13/23 03:00 63 16 105/62 97 11/13/23 02:30 65 13 92/66 96 11/13/23 02:00 69 15 100/66 95 11/13/23 01:30 63 20 93/63 95 11/13/23 01:11 97.3 F 69 72 16 111/69 96 General Appearance: no apparent distress, alert Neurologic Exam: alert, oriented x 3, cooperative, normal mood/affect, nml cerebellar function, nml station & gait, sensation nml, No motor deficits Eye Exam: PERRL/EOMI, eyes nml inspection Ears, Nose, Throat Exam: normal ENT inspection, TMs normal, pharynx normal, moist mucous membranes Neck Exam: normal inspection, non-tender, supple, full range of motion Respiratory Exam: normal breath sounds, lungs clear, No respiratory distress Cardiovascular Exam: regular rate/rhythm, normal heart sounds, normal peripheral pulses Gastrointestinal/Abdomen Exam: soft, normal bowel sounds, No tenderness, No mass Back Exam: normal inspection, normal range of motion, No CVA tenderness, No vertebral tenderness Extremity Exam: normal inspection, normal range of motion, pelvis stable Skin Exam: normal color, warm, dry, other (lesion right upper chest approx 1 inch and appears to be healing), No rash Lymphatic Exam: No adenopathy Results - Labs Lab/Micro Results: Lab Results-Last 24 Hours 11/13/23 11/13/23 11/13/23 Range/Units 01:20 01:20 01:20 WBC 7.7 (4.0-10.5) x10^3/uL RBC 4.14 (4.1-5.4) x10^6/uL Hgb 12.2 (12.0-16.0) g/dL Hct 37.5 (35-47) % MCV 90.6 (78-100) fL MCH 29.5 (26-32) pg MCHC 32.5 (32-36) g/dL RDW 14.1 H (11.5-14.0) % Plt Count 318 (150-450) x10^3/uL MPV 11.4 H (7.5-11.0) fL Gran % 54.0 (36.0-66.0) % Immature Gran % (Auto) 0.1 (0.00-0.4) % Nucleat RBC Rel Count 0.0 (0.00-0.1) % Eos # (Auto) 0.33 (0-0.5) x10^3/uL Immature Gran # (Auto) 0.01 (0.00-0.03) x10^3u/L Absolute Lymphs (auto) 2.51 (1.0-4.6) x10^3/uL Absolute Monos (auto) 0.63 (0.0-1.3) x10^3/uL Absolute Nucleated RBC 0.00 (0.00-0.01) x10^3u/L Lymphocytes % 32.7 (24.0-44.0) % Monocytes % 8.2 (0.0-12.0) % Eosinophils % 4.3 (0.00-5.0) % Basophils % 0.7 (0.0-0.4) % Absolute Granulocytes 4.15 (1.4-6.9) x10^3/uL Basophils # 0.05 (0-0.4) x10^3/uL Sodium 138 (137-145) mmol/L Potassium 4.0 (3.5-5.1) mmol/L Chloride 107 (98-107) mmol/L Carbon Dioxide 25 (22-30) mmol/L Anion Gap 10.4 (5-15) MEQ/L BUN 16 (7-17) mg/dL Creatinine 0.90 (0.52-1.04) mg/dL Estimated GFR 66.3 ML/MIN Glucose 108 H (74-106) mg/dL Calcium 9.6 (8.4-10.2) mg/dL Total Bilirubin 0.50 (0.2-1.3) mg/dL AST 32 (14-36) U/L ALT 23 (0-35) U/L Alkaline Phosphatase 72 (38-126) U/L Creatine Kinase 73 (30-135) U/L Troponin I < 0.012 (0.000-0.034) ng/mL NT-Pro-B Natriuret Pep (<300) pg/mL Serum Total Protein 7.2 (6.3-8.2) g/dL Albumin 4.4 (3.5-5.0) g/dL Influenza Type A Ag (NEGATIVE) Influenza Type B Ag (NEGATIVE) RSV (PCR) (NEGATIVE) SARS-CoV-2 (PCR) (NEGATIVE) 11/13/23 11/13/23 11/13/23 Range/Units 01:20 05:34 08:42 WBC (4.0-10.5) x10^3/uL RBC (4.1-5.4) x10^6/uL Hgb (12.0-16.0) g/dL Hct (35-47) % MCV (78-100) fL MCH (26-32) pg MCHC (32-36) g/dL RDW (11.5-14.0) % Plt Count (150-450) x10^3/uL MPV (7.5-11.0) fL Gran % (36.0-66.0) % Immature Gran % (Auto) (0.00-0.4) % Nucleat RBC Rel Count (0.00-0.1) % Eos # (Auto) (0-0.5) x10^3/uL Immature Gran # (Auto) (0.00-0.03) x10^3u/L Absolute Lymphs (auto) (1.0-4.6) x10^3/uL Absolute Monos (auto) (0.0-1.3) x10^3/uL Absolute Nucleated RBC (0.00-0.01) x10^3u/L Lymphocytes % (24.0-44.0) % Monocytes % (0.0-12.0) % Eosinophils % (0.00-5.0) % Basophils % (0.0-0.4) % Absolute Granulocytes (1.4-6.9) x10^3/uL Basophils # (0-0.4) x10^3/uL Sodium (137-145) mmol/L Potassium (3.5-5.1) mmol/L Chloride (98-107) mmol/L Carbon Dioxide (22-30) mmol/L Anion Gap (5-15) MEQ/L BUN (7-17) mg/dL Creatinine (0.52-1.04) mg/dL Estimated GFR ML/MIN Glucose (74-106) mg/dL Calcium (8.4-10.2) mg/dL Total Bilirubin (0.2-1.3) mg/dL AST (14-36) U/L ALT (0-35) U/L Alkaline Phosphatase (38-126) U/L Creatine Kinase (30-135) U/L Troponin I < 0.012 (0.000-0.034) ng/mL NT-Pro-B Natriuret Pep 26.6 (<300) pg/mL Serum Total Protein (6.3-8.2) g/dL Albumin (3.5-5.0) g/dL Influenza Type A Ag NEGATIVE (NEGATIVE) Influenza Type B Ag NEGATIVE (NEGATIVE) RSV (PCR) NEGATIVE (NEGATIVE) SARS-CoV-2 (PCR) NEGATIVE (NEGATIVE) 11/13/23 Range/Units 09:13 WBC (4.0-10.5) x10^3/uL RBC (4.1-5.4) x10^6/uL Hgb (12.0-16.0) g/dL Hct (35-47) % MCV (78-100) fL MCH (26-32) pg MCHC (32-36) g/dL RDW (11.5-14.0) % Plt Count (150-450) x10^3/uL MPV (7.5-11.0) fL Gran % (36.0-66.0) % Immature Gran % (Auto) (0.00-0.4) % Nucleat RBC Rel Count (0.00-0.1) % Eos # (Auto) (0-0.5) x10^3/uL Immature Gran # (Auto) (0.00-0.03) x10^3u/L Absolute Lymphs (auto) (1.0-4.6) x10^3/uL Absolute Monos (auto) (0.0-1.3) x10^3/uL Absolute Nucleated RBC (0.00-0.01) x10^3u/L Lymphocytes % (24.0-44.0) % Monocytes % (0.0-12.0) % Eosinophils % (0.00-5.0) % Basophils % (0.0-0.4) % Absolute Granulocytes (1.4-6.9) x10^3/uL Basophils # (0-0.4) x10^3/uL Sodium (137-145) mmol/L Potassium (3.5-5.1) mmol/L Chloride (98-107) mmol/L Carbon Dioxide (22-30) mmol/L Anion Gap (5-15) MEQ/L BUN (7-17) mg/dL Creatinine (0.52-1.04) mg/dL Estimated GFR ML/MIN Glucose (74-106) mg/dL Calcium (8.4-10.2) mg/dL Total Bilirubin (0.2-1.3) mg/dL AST (14-36) U/L ALT (0-35) U/L Alkaline Phosphatase (38-126) U/L Creatine Kinase (30-135) U/L Troponin I < 0.012 (0.000-0.034) ng/mL NT-Pro-B Natriuret Pep (<300) pg/mL Serum Total Protein (6.3-8.2) g/dL Albumin (3.5-5.0) g/dL Influenza Type A Ag (NEGATIVE) Influenza Type B Ag (NEGATIVE) RSV (PCR) (NEGATIVE) SARS-CoV-2 (PCR) (NEGATIVE) - Radiology Impressions Radiology Exams & Impressions: Radiology Procedures Category Date Time Status CHEST 1 VIEW (PORTABLE) Stat Exams 11/13/23 01:35 Completed CHEST WITH CONTRAST [CT] Stat Exams 11/13/23 03:32 Completed ECHO W/2D AND DOPPLER [US] Routine Exams 11/13/23 08:49 Taken Assessment/Plan (1) Chest pain, rule out acute myocardial infarction Current Visit: Yes Status: Acute Code(s): R07.9 - CHEST PAIN, UNSPECIFIED (2) HTN (hypertension) Current Visit: Yes Status: Acute Code(s): I10 - ESSENTIAL (PRIMARY) HYPERTENSION (3) Dizziness Current Visit: No Status: Resolved Code(s): R42 - DIZZINESS AND GIDDINESS (4) Wound of skin Current Visit: Yes Status: Acute Assessment & Plan: (1) Chest pain, rule out acute myocardial infarction Current Visit: Yes Status: Acute Assessment & Plan: - tele - CXR and CTA reviewed - heart healthy diet - Trop x3 negative - Echo EF 64% with TR and MR - no further CP since this AM - F/u for OP stress test Code(s): R07.9 - CHEST PAIN, UNSPECIFIED (2) HTN (hypertension) Current Visit: Yes Status: Acute Assessment & Plan: - stable continue home meds Code(s): I10 - ESSENTIAL (PRIMARY) HYPERTENSION (3) Dizziness Current Visit: No Status: Resolved Assessment & Plan: - resolved Code(s): R42 - DIZZINESS AND GIDDINESS (4) Wound of skin Current Visit: Yes Status: Acute Assessment & Plan: - from recent procedure with dermatology - apply mixture of 1/2 and 1/2 NS and hydrogen peroxide per dermatology order then place neosporin on chest wound Code(s): T14.8XXA - OTHER INJURY OF UNSPECIFIED BODY REGION, INITIAL ENCOUNTER Code(s): T14.8XXA - OTHER INJURY OF UNSPECIFIED BODY REGION, INITIAL ENCOUNTER
[2023-11-13] MEDS: Triple Antibiotic Ointment TP SCH (16:23)
[2023-11-13] MEDS: PEROXIDE 3% TOP SCH (16:23)
[2023-11-13 16:24] VITALS: BP 126/66; PULSE 75; RESP 16; TEMP 98.2
[2023-11-13] MEDS ORDERED: THFOLATE PO SCH (22:00)
[2023-11-13] MEDS ORDERED: B12 PO SCH (22:00)
[2023-11-13] MEDS ORDERED: ALA PO SCH (22:00)
[2023-11-13] MEDS ORDERED: Mylicon 80MG PO SCH (22:00)
[2023-11-13] MEDS ORDERED: NON-FORMULARY ITEM (Atorvastatin Calcium [Atorvastatin Calcium] 20 MG Tablet) PO SCH (22:00)
[2023-11-13] MEDS ORDERED: NON-FORMULARY ITEM (Rivaroxaban [Xarelto] 20 MG Tablet) PO SCH (22:00)
[2023-11-13] MEDS ORDERED: SIMETHICONE 180 MG PO SCH (22:00)
[2023-11-13] MEDS ORDERED: ZOCOR 20MG PO SCH (22:00)
[2023-11-13] MEDS ORDERED: FOLTX (FOLBIC) PO SCH (22:00)
[2023-11-13] MEDS ORDERED: VIT B6 PO SCH (22:00)
[2023-11-13] MEDS ORDERED: XARELTO 10 MG TABLET PO SCH (22:00)
[2023-11-14] MEDS ORDERED: Ocuvite Tablet PO SCH (10:00)
[2023-11-14] MEDS ORDERED: [UNRECOGNIZED DRUG - OTHER] PO SCH (10:00)
[2023-11-14 11:43] VITALS: O2SAT 95
[2023-11-14] MEDS ORDERED: Toprol-Xl 25MG Tablets PO SCH (12:00)
== END 2023-11-13 17:02 | disposition home or self-care (01) ==
LOC: ED 01:10 → MED SURG 08:43
PROVIDERS: ADMIT Internal Medicine; ATTEND Internal Medicine
DX: R07.9 Chest pain, unspecified (principal); I48.91 Unspecified atrial fibrillation; I10 Essential (primary) hypertension; R42 Dizziness and giddiness; T14.8XXA Other injury of unspecified body region, initial encounter; Z79.01 Long term (current) use of anticoagulants; Z79.899 Other long term (current) drug therapy; Z20.828 Contact with and (suspected) exposure to other viral communicable diseases
CPT/HCPCS: 0241U; 36415; 71045; 71260; 80053; 82550; 83880; 84484; 85025; 93268; 93306; 99284; Q3014; A9270-GY; G0378

== ENCOUNTER 2025-04-21 17:55 | Emergency (ER) | payer MEDICARE ==
[2025-04-21 18:23] VITALS: TEMP 98.7
--- NOTE | 2025-04-21 19:09 | ERPHSYRPT ---
- History of Present Illness Patient Subjective Stated Complaint: pt states she has been feeling poorly since her ablation procedure on 04/11/25. She states she has has had a fever in the low 100s off and on since. She also states she has a mild productive cough, body aches and shortness of breath. Triage Nursing Assessment: Patient walks to the bed. Skin in warm, pink and dry. Her breathing is easy. She states she has had a fever off and on since 04/11 with cough and shortness of breath. She is currently afebrile. She also reports that she passed out and threw up yesterday. This has not happened since. Lung sounds are clear. She also states that she has aching across her shoulders and chest. She rates the chest pain at 5/10. Allergies/Adverse Reactions: latex Allergy (Intermediate, Verified 11/13/23 01:47) Rash Home Medications: Rivaroxaban [Xarelto] 20 mg PO DAILY 12/07/17 [History] Atorvastatin Calcium 20 mg PO DAILY 11/13/23 [History] Vit B6/Me-Thfolate/Me-B12/Ala [Podiapn Capsule] 1 cap PO DAILY 11/13/23 [History] Metoprolol Succinate 50 mg PO DAILY 04/21/25 [History] Hx Tetanus, Diphtheria Vaccination/Date Given: No Hx Influenza Vaccination/Date Given: No Hx Pneumococcal Vaccination/Date Given: No Travel Risk - International Travel Have you traveled outside of the country in past 3 weeks: No - Emerging Infectious Disease Are you exhibiting symptoms associated with any current EIDs: Yes Symptoms: Cough: New Onset - Past Medical History Pertinent Past Medical History: Yes Neurological History: TIA ENT History: No Pertinent History Cardiac History: Arrhythmia, Hypertension, Other Respiratory History: No Pertinent History Endocrine Medical History: No Pertinent History Musculoskeletal History: No Pertinent History GI Medical History: No Pertinent History History: No Pertinent History Psycho-Social History: No Pertinent History Female Reproductive Disorders: No Pertinent History Other Medical History: afib,implanted electronic device monitor ,freq uti,bruises easily, - Past Surgical History Past Surgical History: Yes Neuro Surgical History: No Pertinent History Cardiac: No Pertinent History Respiratory: No Pertinent History Gastrointestinal: No Pertinent History Genitourinary: No Pertinent History Musculoskeletal: No Pertinent History Female Surgical History: No Pertinent History Other Surgical History: implanted electronic device monitor. colonoscopy. cardiac ablation - Social History Smoking Status: Never smoker Exposure to second hand smoke: No Drug Use: none - Social Determinants of Health Will the patient participate in the screening: Yes Do you worry about a steady place to live?: No Do you have any problems with any of the following?: No known problems In the past 12 months,have you had to go without utilities?: No Transportation Issues: No Has anyone in your support network made you feel unsafe?: No Have you or anyone in your house had to go w/o enough food: No - Nursing Vital Signs Nursing Vital Signs: Initial Vital Signs Pulse Rate 97 H 04/21/25 17:56 Pain Scale Pain Intensity 5 - Physical Exam SpO2: 92 - Departure Referrals: DIANNA VALERO [Primary Care Provider, [facility]] - Follow up/PCP as directed
--- NOTE | 2025-04-21 19:12 | ERPHSYRPT ---
- History of Present Illness Time Seen by Provider: 04/21/25 19:12 Source: patient Exam Limitations: no limitations Patient Subjective Stated Complaint: pt states she has been feeling poorly since her ablation procedure on 04/11/25. She states she has has had a fever in the low 100s off and on since. She also states she has a mild productive cough, body aches and shortness of breath. Triage Nursing Assessment: Patient walks to the bed. Skin in warm, pink and dry. Her breathing is easy. She states she has had a fever off and on since 04/11 with cough and shortness of breath. She is currently afebrile. She also reports that she passed out and threw up yesterday. This has not happened since. Lung sounds are clear. She also states that she has aching across her shoulders and chest. She rates the chest pain at 5/10. Physician History: 79-year-old female presents with worsening cough, congestion and shortness of breath since her ablation procedure on April 11 for afib. Low grade fevers reported. No swelling. Cough productive of yellow sputum. Timing/Duration: day(s) (10) Activities at Onset: none Severity of Dyspnea-Max: moderate Severity of Dyspnea-Current: mild Possible Cause: no prior episodes Modifying Factors: Worsens With: activity, coughing, exertion Associated Symptoms: cough, chest pain/discomfort, fever, productive cough, No wheezing, No calf pain, No leg swelling Allergies/Adverse Reactions: latex Allergy (Intermediate, Verified 11/13/23 01:47) Rash Home Medications: Rivaroxaban [Xarelto] 20 mg PO DAILY 12/07/17 [History] Atorvastatin Calcium 20 mg PO DAILY 11/13/23 [History] Vit B6/Me-Thfolate/Me-B12/Ala [Podiapn Capsule] 1 cap PO DAILY 11/13/23 [History] Metoprolol Succinate 50 mg PO DAILY 04/21/25 [History] Hx Tetanus, Diphtheria Vaccination/Date Given: No Hx Influenza Vaccination/Date Given: No Hx Pneumococcal Vaccination/Date Given: No Travel Risk - International Travel Have you traveled outside of the country in past 3 weeks: No - Emerging Infectious Disease Are you exhibiting symptoms associated with any current EIDs: Yes Symptoms: Cough: New Onset - Review of Systems All Other Systems: Reviewed and Negative - Past Medical History Pertinent Past Medical History: Yes Neurological History: TIA ENT History: No Pertinent History Cardiac History: Arrhythmia, Hypertension, Other Respiratory History: No Pertinent History Endocrine Medical History: No Pertinent History Musculoskeletal History: No Pertinent History GI Medical History: No Pertinent History History: No Pertinent History Psycho-Social History: No Pertinent History Female Reproductive Disorders: No Pertinent History Other Medical History: afib,implanted phototypesetting equipment monitor ,freq uti,bruises easily, - Past Surgical History Past Surgical History: Yes Neuro Surgical History: No Pertinent History Cardiac: No Pertinent History Respiratory: No Pertinent History Gastrointestinal: No Pertinent History Genitourinary: No Pertinent History Musculoskeletal: No Pertinent History Female Surgical History: No Pertinent History Other Surgical History: implanted phototypesetting equipment monitor. colonoscopy. cardiac ablation - Social History Smoking Status: Never smoker Exposure to second hand smoke: No Drug Use: none - Social Determinants of Health Will the patient participate in the screening: Yes Do you worry about a steady place to live?: No Do you have any problems with any of the following?: No known problems In the past 12 months,have you had to go without utilities?: No Transportation Issues: No Has anyone in your support network made you feel unsafe?: No Have you or anyone in your house had to go w/o enough food: No - Nursing Vital Signs Nursing Vital Signs: Initial Vital Signs Pulse Rate 97 H 04/21/25 17:56 Pain Scale Pain Intensity 5 - Physical Exam General Appearance: no apparent distress Ears, Nose, Throat Exam: hearing grossly normal Neck Exam: normal inspection, supple, full range of motion Respiratory Exam: normal breath sounds, lungs clear, airway intact, No respiratory distress Cardiovascular/Chest Exam: normal heart sounds, regular rate/rhythm, No edema Extremity Exam: non-tender, normal range of motion, normal inspection, No shadi's sign Neurologic Exam: alert, oriented x 3, cooperative Skin Exam: normal color, warm, dry SpO2 Interpretation: borderline oxygenation SpO2: 92 O2 Delivery: Room Air - Course Nursing assessment & vital signs reviewed: Yes EKG Interpreted by Me: RATE ([id number]), Sinus Rhythm, NORMAL AXIS, NORMAL INTERVALS, NORMAL QRS, NORMAL ST-T Ordered Tests: Active Orders 24 hr Category Date Time Status EKG-ER Only STAT Care 04/21/25 19:18 Completed CHEST 1 VIEW (PORTABLE) Stat Exams 04/21/25 19:19 Taken CHEST WITH CONTRAST [CT] Stat Exams 04/21/25 20:09 Taken CBC W DIFF Stat Lab 04/21/25 19:25 Completed CMP Stat Lab 04/21/25 19:25 Completed D-DIMER QUANTITATIVE Stat Lab 04/21/25 19:25 Completed Lactic Acid Stat Lab 04/21/25 19:30 Completed NT PRO BNPII Stat Lab 04/21/25 19:25 Completed TROPONIN Q2H Lab 04/21/25 19:25 Completed TROPONIN Q2H Lab 04/21/25 23:30 Completed Medication Summary Discontinued Medications Generic Name Dose Route Start Last Admin Trade Name Helga PRN Reason Stop Dose Admin Atorvastatin Calcium 20 mg 04/21/25 23:25 04/21/25 23:33 Atorvastatin Calcium 40 Mg Tablet PO 04/21/25 23:26 20 mg STAT STA Administration Atorvastatin Calcium Confirm 04/21/25 23:32 Atorvastatin Calcium 40 Mg Tablet Administered 04/21/25 23:33 Dose 40 mg .ROUTE .STK-MED ONE Levofloxacin/Dextrose 750 mg in 150 mls @ 100 mls/hr 04/21/25 20:52 04/21/25 22:31 Levofloxacin 750mg/150ml D5w IV 04/21/25 22:21 Infused STAT STA Infusion Sodium Chloride 1,000 mls @ 999 mls/hr 04/21/25 21:00 04/21/25 22:04 Sodium Chloride 0.9% 1000 Ml IV 04/21/25 22:00 Infused .Q1H1M BINU Infusion Levofloxacin/Dextrose Confirm 04/21/25 21:00 Levofloxacin 750mg/150ml D5w Administered 04/21/25 21:01 Dose 750 mg in 150 mls @ ud IV .STK-MED ONE Sodium Chloride Confirm 04/21/25 21:00 Sodium Chloride 0.9% 1000 Ml Administered 04/21/25 21:01 Dose 1,000 mls @ ud .ROUTE .STK-MED ONE Rivaroxaban 20 mg 04/21/25 23:24 04/21/25 23:44 Rivaroxaban 10 Mg Tablet PO 04/21/25 23:25 20 mg STAT ONE Administration Lab/Rad Data: Laboratory Result Diagrams 04/21/25 19:25 04/21/25 19:25 Laboratory Results 04/21/25 04/21/25 04/21/25 Range/Units 23:30 19:35 19:30 WBC (3.98-10.04) x10^3/uL RBC (3.93-5.22) x10^6/uL Hgb (11.2-15.7) g/dL Hct (34.1-44.9) % MCV (79.4-94.8) fL MCH (25.6-32.2) pg MCHC (32.2-35.5) g/dL RDW (11.7-14.4) % Plt Count (182-369) x10^3/uL MPV (9.4-12.3) fL Gran % (34.0-71.1) % Immature Gran % (Auto) (0.001-0.429) % Nucleat RBC Rel Count (0.00-0.2) % Eos # (Auto) (0.04-0.36) x10^3/uL Immature Gran # (Auto) (0.001-0.031) x10^3u/L Absolute Lymphs (auto) (1.18-3.74) x10^3/uL Absolute Monos (auto) (0.24-0.86) x10^3/uL Absolute Nucleated RBC (0.00-0.012) x10^3u/L Lymphocytes % (19.3-51.7) % Monocytes % (4.7-12.5) % Eosinophils % (0.7-5.8) % Basophils % (0.1-1.2) % Absolute Granulocytes (1.56-6.13) x10^3/uL Basophils # (0.01-0.08) x10^3/uL D-Dimer (0.0-0.50) mg/L Sodium (135-145) mmol/L Potassium (3.5-5.1) mmol/L Chloride (98-107) mmol/L Carbon Dioxide (22-30) mmol/L Anion Gap (5-15) MEQ/L BUN (7-17) mg/dL Creatinine (0.52-1.04) mg/dL Estimated GFR ML/MIN Glucose (74-106) mg/dL Lactic Acid 1.4 (0.4-2.0) Calcium (8.4-10.2) mg/dL Total Bilirubin (0.2-1.3) mg/dL AST (14-36) U/L ALT (0-35) U/L Alkaline Phosphatase (38-126) U/L Troponin I < 0.012 (0.000-0.033) ng/mL NT-Pro-B Natriuret Pep (<300) pg/mL Serum Total Protein (6.3-8.2) g/dL Albumin (3.5-5.0) g/dL Influenza Type A Ag NEGATIVE (NEGATIVE) Influenza Type B Ag NEGATIVE (NEGATIVE) RSV (PCR) NEGATIVE (NEGATIVE) SARS-CoV-2 (PCR) NEGATIVE (NEGATIVE) 04/21/25 04/21/25 04/21/25 Range/Units 19:25 19: 19:25 WBC (3.98-10.04) x10^3/uL RBC (3.93-5.22) x10^6/uL Hgb (11.2-15.7) g/dL Hct (34.1-44.9) % MCV (79.4-94.8) fL MCH (25.6-32.2) pg MCHC (32.2-35.5) g/dL RDW (11.7-14.4) % Plt Count (182-369) x10^3/uL MPV (9.4-12.3) fL Gran % (34.0-71.1) % Immature Gran % (Auto) (0.001-0.429) % Nucleat RBC Rel Count (0.00-0.2) % Eos # (Auto) (0.04-0.36) x10^3/uL Immature Gran # (Auto) (0.001-0.031) x10^3u/L Absolute Lymphs (auto) (1.18-3.74) x10^3/uL Absolute Monos (auto) (0.24-0.86) x10^3/uL Absolute Nucleated RBC (0.00-0.012) x10^3u/L Lymphocytes % (19.3-51.7) % Monocytes % (4.7-12.5) % Eosinophils % (0.7-5.8) % Basophils % (0.1-1.2) % Absolute Granulocytes (1.56-6.13) x10^3/uL Basophils # (0.01-0.08) x10^3/uL D-Dimer 1.29 H* (0.0-0.50) mg/L Sodium 130 L (135-145) mmol/L Potassium 4.2 (3.5-5.1) mmol/L Chloride 98 (98-107) mmol/L Carbon Dioxide 21 L (22-30) mmol/L Anion Gap 15.7 H (5-15) MEQ/L BUN 14 (7-17) mg/dL Creatinine 0.78 (0.52-1.04) mg/dL Estimated GFR 78.2 ML/MIN Glucose 138 H (74-106) mg/dL Lactic Acid (0.4-2.0) Calcium 9.3 (8.4-10.2) mg/dL Total Bilirubin 0.90 (0.2-1.3) mg/dL AST 73 H (14-36) U/L ALT 125 H (0-35) U/L Alkaline Phosphatase 145 H (38-126) U/L Troponin I < 0.012 (0.000-0.033) ng/mL NT-Pro-B Natriuret Pep 590 (<300) pg/mL Serum Total Protein 6.4 (6.3-8.2) g/dL Albumin 3.6 (3.5-5.0) g/dL Influenza Type A Ag (NEGATIVE) Influenza Type B Ag (NEGATIVE) RSV (PCR) (NEGATIVE) SARS-CoV-2 (PCR) (NEGATIVE) 04/21/25 Range/Units 19:25 WBC 13.9 H (3.98-10.04) x10^3/uL RBC 3.65 L (3.93-5.22) x10^6/uL Hgb 11.0 L (11.2-15.7) g/dL Hct 32.4 L (34.1-44.9) % MCV 88.8 (79.4-94.8) fL MCH 30.1 (25.6-32.2) pg MCHC 34.0 (32.2-35.5) g/dL RDW 14.4 (11.7-14.4) % Plt Count 489 H (182-369) x10^3/uL MPV 10.3 (9.4-12.3) fL Gran % 78.4 H (34.0-71.1) % Immature Gran % (Auto) 0.8 H (0.001-0.429) % Nucleat RBC Rel Count 0.0 (0.00-0.2) % Eos # (Auto) 0.02 L (0.04-0.36) x10^3/uL Immature Gran # (Auto) 0.11 H (0.001-0.031) x10^3u/L Absolute Lymphs (auto) 1.42 (1.18-3.74) x10^3/uL Absolute Monos (auto) 1.40 H (0.24-0.86) x10^3/uL Absolute Nucleated RBC 0.00 (0.00-0.012) x10^3u/L Lymphocytes % 10.2 L (19.3-51.7) % Monocytes % 10.1 (4.7-12.5) % Eosinophils % 0.1 L (0.7-5.8) % Basophils % 0.4 (0.1-1.2) % Absolute Granulocytes 10.86 H (1.56-6.13) x10^3/uL Basophils # 0.05 (0.01-0.08) x10^3/uL D-Dimer (0.0-0.50) mg/L Sodium (135-145) mmol/L Potassium (3.5-5.1) mmol/L Chloride (98-107) mmol/L Carbon Dioxide (22-30) mmol/L Anion Gap (5-15) MEQ/L BUN (7-17) mg/dL Creatinine (0.52-1.04) mg/dL Estimated GFR ML/MIN Glucose (74-106) mg/dL Lactic Acid (0.4-2.0) Calcium (8.4-10.2) mg/dL Total Bilirubin (0.2-1.3) mg/dL AST (14-36) U/L ALT (0-35) U/L Alkaline Phosphatase (38-126) U/L Troponin I (0.000-0.033) ng/mL NT-Pro-B Natriuret Pep (<300) pg/mL Serum Total Protein (6.3-8.2) g/dL Albumin (3.5-5.0) g/dL Influenza Type A Ag (NEGATIVE) Influenza Type B Ag (NEGATIVE) RSV (PCR) (NEGATIVE) SARS-CoV-2 (PCR) (NEGATIVE) - Progress Progress: unchanged Air Movement: fair Progress Note: This patient presents with dyspnea, recent cardiac ablation on 04/11. Rule out acute cardiac etiologies to include ACS, CHF, pericardial effusion / tamponade. No signs of shock, vitally stable. Will also rule out acute respiratory etiologies to include acute PE, pneumothorax , asthma, COPD exacerbation, allergic etiologies, or infectious etiologies such as PNA. Presentation not consistent with non-cardiopulmonary causes to include toxidromes, metabolic etiologies such as acidemia or electrolyte derangements, sepsis, neurologic causes (i.e. demyelinating diseases). Plan: supplemental O2, CXR, labs, troponin, close hemodynamic monitoring, serial reassessment 04/21/25 22:44 WBC 13.9, Hb 11, Na 130, AST/ALT 73/125, Troponin neg, BNP 590, D dimer 1.29 CXR shows possible infiltrate and bilateral pleural effusion, started Levofloxacin and given 1L NS bolus CTA ordered which shows no PE, new moderate pericardial effusion, small b/l pleural effusion with compressive atelectasis. Discussed case with Dr. Gallagher (cardio) who agrees to consult at 2231, no new recs. Dr. Moe (hospitalist) accepts patient for admission at [facility], waiting for bed assignment. Blood Culture(s) Obtained: No Antibiotics given: Yes Counseled pt/family regarding: lab results, diagnosis, rad results Medical Desision Making - Diagnostic Testing Diagnostic test were ordered, analyzed, and reviewed by me: Yes Radiological Interpretation: Interpreted by me, Reviewed by me, Teleradiologist Report - Risk of complications The pt has a mod risk of morbidity or mortality based on: Need for prescription drug management The pt has a high risk of morbidity or mortality based on: Decision regarding hospitilization or escalation of hosp level of care - Departure Departure Disposition: Transfer ([place]) Clinical Impression: Pericardial effusion, Pleural effusion, Dyspnea, Transaminitis Condition: Stable Critical Care Time: No Referrals: DIANNA VALERO [Primary Care Provider, [facility]] - Follow up/PCP as directed Instructions: Pericardial effusion
[2025-04-21 19:30] LABS: BASOPHIL % 0.4 % (0.1-1.2); Basophil (Absolute #) 0.05 x10^3/uL (0.01-0.08); Eosinophil (Absolute #) 0.02 x10^3/uL (0.04-0.36); Hematocrit 32.4 % (34.1-44.9); Hemoglobin 11.0 g/dL (11.2-15.7); IMMATURE GRAN # 0.11 x10^3u/L (0.001-0.031); IMMATURE GRAN % 0.8 % (0.001-0.429); Lymphocyte (Absolute #) 1.42 x10^3/uL (1.18-3.74); Mean Corpuscular Hemoglobin 30.1 pg (25.6-32.2); Mean Corpuscular Hgb Concent. 34.0 g/dL (32.2-35.5); Monocyte (Absolute #) 1.40 x10^3/uL (0.24-0.86); NUCLEATED RBC # 0.00 x10^3u/L (0.00-0.012); NUCLEATED RBC % 0.0 % (0.00-0.2); Platelet Count 489 x10^3/uL (182-369); Red Blood Count 3.65 x10^6/uL (3.93-5.22); White Blood Count 13.9 x10^3/uL (3.98-10.04)
[2025-04-21 20:11] LABS: Calcium 9.3 mg/dL (8.4-10.2); Carbon Dioxide 21.0 mmol/L (22-30); Creatinine 1 0.78 mg/dL (0.52-1.04); EST GLOMERULAR FILTRATION RATE 78.2 ML/MIN; Glucose 138.0 mg/dL (74-106); NT PRO BNPII 590.0 pg/mL (<300); Potassium 4.2 mmol/L (3.5-5.1); SGOT/AST 73.0 U/L (14-36); SGPT/ALT 125.0 U/L (0-35); Total Protein 6.4 g/dL (6.3-8.2)
[2025-04-21 20:18] LABS: INFLUENZA A NEGATIVE (NEGATIVE); INFLUENZA B NEGATIVE (NEGATIVE); RESPIRATORY SYNCTIAL VIRUS NEGATIVE (NEGATIVE); SARS-CoV-2 Xpert Express NEGATIVE (NEGATIVE)
[2025-04-21] MEDS ORDERED: LEVOFLOXACIN 750MG/150ML D5W 750 MG/150 ML BAG IV ONE (21:00)
[2025-04-21] MEDS: LEVOFLOXACIN 750MG/150ML D5W 750 MG/150 ML BAG IV STA (21:01)
[2025-04-21] MEDS ORDERED: LIPITOR 40MG ONE (23:32)
[2025-04-21] MEDS: LIPITOR 40MG PO STA (23:33)
[2025-04-21] MEDS: XARELTO 10 MG TABLET PO ONE (23:44)
[2025-04-22 00:05] VITALS: BP 97/74; PULSE 113; RESP 27
[2025-04-22 02:30] VITALS: O2SAT 92
--- NOTE | 2025-04-22 08:03 | XRAY ---
Indication: Short of breath. Comparison: November 13, 2023 Portable chest demonstrates new cardiomegaly, mild central vascular congestion, and moderate left base infiltrate/atelectasis/effusion, favoring cardiac decompensation/CHF. Superimposed pneumonia not completely excluded. Incidental right mid to lower lung discoid atelectasis/scarring, osteopenia, and mild bony degenerative changes.
--- NOTE | 2025-04-22 08:10 | XRAY ---
Indication: Chest pain. Short of breath. Multiple contiguous axial images obtained through the chest using 100 cc Isovue 370 contrast and PE protocol. Comparison: November 13, 2023 Good opacification pulmonary arteries. However there is mild diffuse respiration artifact limiting exam. No obvious pulmonary embolus. Heart borderline enlarged with new moderate pericardial effusion. Aorta is normal in course and caliber. Stable tiny left hilar calcified nodes. No pathologic mediastinal/hilar lymphadenopathy. Base of neck demonstrates grossly stable incompletely visualized heterogeneous thyromegaly. Lungs demonstrates new moderate left and mild right effusions with compressive atelectasis. No suspicious pulmonary mass/nodule or infiltrate. Bony thorax intact again with osteopenia and mild degenerative changes throughout spine. Limited upper abdomen again demonstrates incidental tiny splenic calcified granulomas. Impression: 1. Pulmonary embolus evaluation limited by respiration artifact. No obvious pulmonary embolus. 2. New borderline cardiomegaly with moderate pericardial effusion. Also new bilateral effusion/atelectasis, left greater than right. Rule out cardiac decompensation/CHF. Echocardiogram may yield further information. 3. Chronic findings including incompletely visualized heterogeneous thyromegaly, chronic bony findings, and old granulomatous disease.
== END 2025-04-22 00:38 | disposition short-term general hospital (02) ==
LOC: ED 17:55
DX: I31.39 Other pericardial effusion (noninflammatory) (principal); J90 Pleural effusion, not elsewhere classified; R06.00 Dyspnea, unspecified; R74.01 Elevation of levels of liver transaminase levels; R05.1 Acute cough; I10 Essential (primary) hypertension; Z79.01 Long term (current) use of anticoagulants; Z79.899 Other long term (current) drug therapy